=== PATIENT | male | born 1980 ===

== ENCOUNTER 2024-09-18 09:48 | Emergency (ER) | payer SELFPAY ==
[2024-09-18] VITALS (12 sets, daily range): BP systolic 134–166; BP diastolic 88–105
[~2024-09-18] VITALS: Ht 190.5 cm; Wt 86.1 kg
[2024-09-18] MEDS ORDERED: predniSONE 20 MG/TAB PO ONE (11:00)
[2024-09-18] MEDS ORDERED: IPRATROPIUM-Albuterol 0.5MG-2.5MG/3 ML NEB ONE ×2 (11:00)
[2024-09-18] MEDS ORDERED: IPRATROPIU0.5 MG/3 M IN (11:02)
[2024-09-18] MEDS ORDERED: ZPAK PO (11:02)
[2024-09-18] MEDS ORDERED: AMOX/K CLAV875 M1 PO (11:02)
[2024-09-18] MEDS ORDERED: CHERATUSSIN PO (11:02)
[2024-09-18] MEDS ORDERED: PREDNISONE50 MG PO (11:02)
[2024-09-18] MEDS ORDERED: cefTRIAXone SODIUM 2 GM in SODIUM CHLORIDE 0.9% 100 ML IV ONE (11:10)
[2024-09-18] MEDS ORDERED: SODIUM CHLORIDE 0.9% 1,000 ML IV ONE (11:10)
[2024-09-18 11:34] LABS: HEMATOCRIT 41.6 % (39.0-50.0); IMMATURE GRANULOCYTES 0.2 % (0.0-5.0); LYMPH% 5.1 % (15-41); MEAN CELL VOLUME 99.3 fL CALC (80.0-100.0); MEAN CORPUSCULAR HGB 33.4 pG CALC (26.0-32.0); MEAN CORPUSCULAR HGB CONC 33.7 g/dL CAL (32.0-36.0); MONO% 6.9 % (2-13); NEUT# 7.39 thou/uL (1.82-7.42); NEUT% 87.8 % (42-76); RED BLOOD COUNT 4.19 mill/uL (4.70-6.10); RED CELL DISTRI WIDTH 11.6 % (11.5-15.5)
[2024-09-18 11:44] LABS: ALBUMIN 4.2 g/dL (3.2-5.0); BILIRUBIN, TOTAL 0.7 mg/dL (0.2-1.3); CREATININE 0.8 mg/dL (0.7-1.3); POTASSIUM 3.8 mmol/l (3.5-5.1); TOTAL PROTEIN 7.3 g/dL (6.3-8.2)
== END 2024-09-18 14:19 | disposition home or self-care (01) | DRG 195 ==
LOC: ED 09:48
PROVIDERS: Family Medicine
DX: J11.00 Influenza due to unidentified influenza virus with unspecified type of pneumonia (principal); Z20.822 Contact with and (suspected) exposure to COVID-19
CPT/HCPCS: J0696; Q9967